=== PATIENT | male | born 1960 | race Caucasian/White ===

== ENCOUNTER 2021-05-24 08:48 | Day surgery (SDC) | payer OTHER ==
--- NOTE | 2021-05-22 13:02 | EKG ---
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
[2021-05-24] MEDS ORDERED: Ringers Lactate 1,000 ML IV ONE (09:18)
[2021-05-24] MEDS: LIDOCAINE 1% W/EPI 1:100,000 MDV 20 ML VIAL ONE ×2 (10:46→11:15)
[2021-05-24] MEDS ORDERED: FENTANYL CITR 100 MCG/2 ML ONE (11:02)
[2021-05-24] MEDS ORDERED: LIDOCAINE 1% MPF 5 ML VIAL ONE (11:02)
[2021-05-24] MEDS ORDERED: propofoL 200 MG/20 ML VIAL IV ONE (11:02)
[2021-05-24] MEDS ORDERED: MIDAZOLAM HCL 2 MG/2 ML INJ ONE (11:02)
[2021-05-24] MEDS ORDERED: EPHEDRINE SULF 50 MG/ML VIAL ONE (11:40)
[2021-05-24] MEDS ORDERED: NS 0.9% VIAL 10 ML ONE (11:40)
--- NOTE | 2021-05-24 11:42 | P.BOP ---
Preoperative diagnosis: chondrodermatitis nodularis helicis Postoperative diagnosis: same Primary procedure: partial auriculectomy, right Mandrel Cleaner: NONE,NONE Estimated blood loss: 5ml Specimen: right ear skin and cartilage, suture 12 oclock/superior Anesthesia: General Complications: None Implants: none Fluids & blood products: crystalloid 600ml Transferred to: Recovery Room Condition: Good
[2021-05-24 14:11] VITALS: BP 138/76; TEMP 96.8; O2SAT 95
--- NOTE | 2021-05-25 21:47 | OP ---
Date of Procedure: 05/24/2021 Surgeon: Jennifer Pryor MD Preoperative Diagnosis: Chondrodermatitis nodularis helicis. Postoperative Diagnosis: Chondrodermatitis nodularis helicis. Procedure: Partial auriculectomy. Indication For Procedure: Mr. 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 After considering the risks, benefits, and alternatives, he el ected for surgical resection. The patient was advised prior to surgery of the risk of recurrence as well as other standard surgical risks. Description Of Procedure: The patient was brought to the operating room. He was placed under genera l anesthesia via oral LMA. The area around the right ear was injected with 1% lidocaine with epineph rine to aid in bleeding and postoperative pain. There was a 1 x 2 mm ulceration in the skin located on the antihelix. An elliptical incision around this ulceration anterior to the skin was incised usi ng a Bovie electrocautery. A suture was placed at the superior most aspect indicating 12 o'clock and the specimen was sent to pathology for permanent section reducing risk of recurrence. An excision of the cartilage was performed in order to reshape the curvature of the ear with a goal of reducing pressure on the outer ear. The surrounding skin was elevated off the cartilage and a linear extension superiorly and inferiorly of an additional 5 mm was made in order to give to th e cartilage. A scalpel used to incise a fusiform portion of the antihelix and it was carefully eleva willie off the posterior skin. The scalpel was then used to gently shave and round the edges in order t o soften the curvature of the cartilage over these areas and improve closure. After adequate resecti on, the skin was advanced over the surgical defect and secured using 4-0 Vicryl sutures on the deep t issue layers. The skin was then closed using gut suture in a running fashion to approximate the skin edges. After cleaning the ear with saline, triple antibiotic ointment was applied to the incision l ine and the patient was returned to Anesthesia for awakening and extubation in the operating room, wh ich proceeded without difficulty. Complications: None. Disposition: The patient will be discharged home later today and follow up with Dr. Pryor in 10 da ys for re-evaluation and assessment for healing. TARAN/STAN Voice ID: [id number] Report ID: [id number]
== END 2021-05-24 12:55 | disposition home or self-care (01) ==
LOC: OR 08:48
PROVIDERS: ATTEND Otolaryngology
PROC: 09B0XZZ Excision of Right External Ear, External Approach (ICD-10-PCS; principal; 2021-05-24 10:00)
DX: H61.031 Chondritis of right external ear (principal); L57.0 Actinic keratosis; Z72.0 Tobacco use; Z20.822 Contact with and (suspected) exposure to COVID-19
CPT/HCPCS: 93005; 88305; 69110; U0003; J2704; J2250; J3010; J7120